=== PATIENT | male | born 1955 | race Caucasian/White ===

== ENCOUNTER 2017-12-14 04:11 | Emergency (ER) | payer BC ==
[~2017-12-14] VITALS: Ht 182.9 cm; Wt 115.0 kg
[2017-12-14 04:14] VITALS: BP 178/96; PULSE 70; RESP 18; TEMP 97.6; O2SAT 96
[2017-12-14] MEDS ORDERED: ASPI-516 CHEW (04:28)
[2017-12-14] MEDS ORDERED: SODIUM CHLOR 0.9% 1000 ML INJ 1,000 ML IV ONE (04:28)
[2017-12-14] MEDS ORDERED: LIPI20TA PO (04:28)
[2017-12-14] MEDS ORDERED: ONDANSETRON HCL 4 MG/2 ML VIAL ONE (04:28)
--- NOTE | 2017-12-14 04:28 | PD ---
HPI Chief Complaint: Dizziness Time Seen by Provider: 04:26 Travel History International Travel<30 days: No Contact w/Intl Traveler<30days: No Traveled to known affect area: No History of Present Illness HPI 62 yo male complains of dizziness. Started about 3 hours prior to arrival at rest. Sensation as room spinning around. Systems include vomiting. No chest pain. Diaphoresis present. Severity moderate to severe. No similar prior episode. PFSH Past Medical History Immunizations Current: Yes Triglycerides - High: Yes Tetanus Vaccination: Unknown Influenza Vaccination: No Social History Alcohol Use: Yes (occ) Tobacco Use: No Substance Use: No Allergies-Medications (Allergen,Severity, Reaction): Coded Allergies: No Known Allergies (Unverified , 12/14/17) Reported Meds & Prescriptions Reported Meds & Active Scripts Active Ofloxacin Otic Drops 0.3 % Drops 5 Drop RIGHT EAR DAILY 7 Days Reported Aspirin 81 Mg Chew 81 Mg CHEW DAILY Lipitor (Atorvastatin Calcium) 20 Mg Tab 20 Mg PO HS Review of Systems Except as stated in HPI: all other systems reviewed are Neg General / Constitutional: No: Fever Physical Exam Narrative GENERAL: 62 yo M, WNWD, moderate distress 2/2 dizziness Vital Signs Date Time Temp Pulse Resp B/P (MAP) Pulse Ox O2 Delivery O2 Flow Rate FiO2 12/14/17 04:30 85 20 178/107 (130) 96 Room Air 12/14/17 04:29 18 97 Room Air 12/14/17 04:14 97.6 70 18 178/96 (123) 96 SKIN: Warm and dry. HEAD: Atraumatic. Normocephalic. EYES: Pupils equal and round. No scleral icterus. No injection or drainage. Minimal Leftward horizontal nystagmus. ENT: No nasal bleeding or discharge. Mucous membranes pink and moist. R external canal with minimal otitis. L external canal normal. NECK: Trachea midline. No JVD. CARDIOVASCULAR: Regular rate and rhythm. RESPIRATORY: No accessory muscle use. Clear to auscultation. Breath sounds equal bilaterally. GASTROINTESTINAL: Abdomen soft, non-tender, nondistended. Hepatic and splenic margins not palpable. MUSCULOSKELETAL: Extremities without clubbing, cyanosis, or edema. No obvious deformities. NEUROLOGICAL: Awake and alert. No obvious cranial nerve deficits. Motor grossly within normal limits. Five out of 5 muscle strength in the arms and legs. Normal speech. PSYCHIATRIC: Appropriate mood and affect; insight and judgment normal. Data Data Last Documented VS Vital Signs Date Time Temp Pulse Resp B/P (MAP) Pulse Ox O2 Delivery O2 Flow Rate FiO2 12/14/17 04:30 85 20 178/107 (130) 96 Room Air 12/14/17 04:14 97.6 Orders Orders Electrocardiogram (12/14/17 04:28) Basic Metabolic Panel (Bmp) (12/14/17 04:28) Complete Blood Count With Diff (12/14/17 04:28) Ecg Monitoring (12/14/17 04:28) Iv Access Insert/Monitor (12/14/17 04:28) Oximetry (12/14/17 04:28) Meclizine (Antivert) (12/14/17 04:30) Ondansetron Inj (Zofran Inj) (12/14/17 04:30) Sodium Chloride 0.9% Flush (Ns Flush) (12/14/17 04:30) Sodium Chlor 0.9% 1000 Ml Inj (Ns 1000 M (12/14/17 04:28) Lorazepam Inj (Ativan Inj) (12/14/17 04:30) Ondansetron Inj (Zofran Inj) (12/14/17 04:28) Ct Brain W/O Iv Contrast(Rout) (12/14/17 04:37) Ed Discharge Order (12/14/17 06:03) Labs Laboratory Tests Test 12/14/17 04:35 White Blood Count 9.7 TH/MM3 Red Blood Count 4.95 MIL/MM3 Hemoglobin 15.7 GM/DL Hematocrit 44.4 % Mean Corpuscular Volume 89.8 FL Mean Corpuscular Hemoglobin 31.7 PG Mean Corpuscular Hemoglobin Concent 35.3 % Red Cell Distribution Width 13.3 % Platelet Count 216 TH/MM3 Mean Platelet Volume 8.5 FL Neutrophils (%) (Auto) 62.1 % Lymphocytes (%) (Auto) 26.9 % Monocytes (%) (Auto) 6.3 % Eosinophils (%) (Auto) 3.9 % Basophils (%) (Auto) 0.8 % Neutrophils # (Auto) 6.0 TH/MM3 Lymphocytes # (Auto) 2.6 TH/MM3 Monocytes # (Auto) 0.6 TH/MM3 Eosinophils # (Auto) 0.4 TH/MM3 Basophils # (Auto) 0.1 TH/MM3 CBC Comment DIFF FINAL Differential Comment Blood Urea Nitrogen 12 MG/DL Creatinine 0.93 MG/DL Random Glucose 156 MG/DL Calcium Level 8.4 MG/DL Sodium Level 138 MEQ/L Potassium Level 3.5 MEQ/L Chloride Level 105 MEQ/L Carbon Dioxide Level 24.0 MEQ/L Anion Gap 9 MEQ/L Estimat Glomerular Filtration Rate 82 ML/MIN MDM Medical Decision Making Medical Screen Exam Complete: Yes Emergency Medical Condition: Yes Medical Record Reviewed: Yes Differential Diagnosis otitis externa, vertigo peripheral, vertigo central Narrative Course CBC & BMP Diagram 12/14/17 04:35 Calcium Level 8.4 L Tn < 0.02 EKG: sinus, rate 68, normal, normal, no ischemia Last Impressions Head CT 12/14/17 3967 Signed Impressions: Service Date/Time: Sunday, December 14, 2017 05:02 - CONCLUSION: Negative noncontrast head CT. Wilner Shelby MD The patient is resting comfortably and feels better, is alert and in no distress. The patients results and examination findings were discussed. The repeat examination is unremarkable and benign. The history, exam, diagnostic testing, and current condition do not suggest any significant pathology to warrant further testing, continued ED treatment, admission, or surgical evaluation at this point. The vital signs have been stable. The patient does not have uncontrollable pain, intractable vomiting, or other significant symptoms. The patient's condition is stable and appropriate for discharge. The patient will pursue further outpatient evaluation with a primary care physician or other designated or consulting physician as indicated in the discharge instructions. The patient expressed understanding and was agreeable with this plan. Diagnosis Primary Impression: Vertigo Additional Impression: Otitis externa Qualified Codes: H60.501 - Unspecified acute noninfective otitis externa, right ear Referrals: Primary Care Physician 2 days Med/Other Pt SpecificInfo: Prescription(s) given Scripts Meclizine (Meclizine) 25 Mg Tab 25 MG PO TID Y for VERTIGO, #30 TAB 0 Refills Prov: Orville Lucas MD 12/14/17 Ofloxacin Otic Drops (Ofloxacin Otic Drops) 0.3 % Drops 5 DROP RIGHT EAR DAILY for Infection for 7 Days, #1 BOTTLE 0 Refills Prov: Orville Lucas MD 12/14/17 Disposition: 01 DISCHARGE HOME Condition: Stable Orville Lucas MD Dec 14, 2017 04:28
[2017-12-14 04:29] VITALS: RESP 18; O2SAT 97
[2017-12-14 04:30] VITALS: BP 178/107; PULSE 85; RESP 20; O2SAT 96
[2017-12-14] MEDS ORDERED: LORazepam 2 MG/ML VIAL IV PUSH ONE (04:30)
[2017-12-14] MEDS ORDERED: ONDANSETRON HCL 4 MG/2 ML VIAL IVP ONE (04:30)
[2017-12-14] MEDS ORDERED: MECLIZINE HCL 25 MG TAB PO ONE (04:30)
[2017-12-14] MEDS ORDERED: SODIUM CHLORIDE 0.9% FLUSH 10 ML FLUSH IVF PRN (04:30)
[2017-12-14 04:51] LABS: BASOPHIL # 0.1 TH/MM3 (0-0.2); BASOPHIL % 0.8 % (0.0-2.0); EOSINOPHIL # 0.4 TH/MM3 (0-0.4); EOSINOPHIL % 3.9 % (0.0-4.0); HEMATOCRIT 44.4 % (39.0-51.0); HEMOGLOBIN 15.7 GM/DL (13.0-17.0); LYMPH % 26.9 % (9.0-44.0); LYMPHOCYTE # 2.6 TH/MM3 (1.0-4.8); MEAN CELL VOLUME 89.8 FL (80.0-100.0); MEAN CORPUSCULAR HEMOGLOBIN 31.7 PG (27.0-34.0); MEAN CORPUSCULAR HGB CONC 35.3 % (32.0-36.0); MEAN PLATELET VOLUME 8.5 FL (7.0-11.0); MONO % 6.3 % (0.0-8.0); MONOCYTE # 0.6 TH/MM3 (0-0.9); NEUT % 62.1 % (16.0-70.0); PLATELET COUNT 216 TH/MM3 (150-450); RED BLOOD COUNT 4.95 MIL/MM3 (4.50-5.90); RED CELL DISTRIBUTION WIDTH 13.3 % (11.6-17.2); WHITE BLOOD COUNT 9.7 TH/MM3 (4.0-11.0)
--- NOTE | 2017-12-14 05:16 | RADRPT ---
EXAM DATE/TIME: 12/14/2017 05:02 [facility] COMPARISON: No previous studies available for comparison. INDICATIONS : Dizziness. RADIATION DOSE: 56.35 CTDIvol (mGy) MEDICAL HISTORY : None SURGICAL HISTORY : None. ENCOUNTER: Initial ACUITY: 1 day PAIN SCALE: 0/10 LOCATION: cranial TECHNIQUE: Multiple contiguous axial images were obtained of the head. Using automated exposure control and adj ustment of the mA and/or kV according to patient size, radiation dose was kept as low as reasonably a chievable to obtain optimal diagnostic quality images. DICOM format image data is available electro nically for review and comparison. FINDINGS: CEREBRUM: The ventricles are normal for age. No evidence of midline shift, mass lesion, hemorrhage or acute in farction. No extra-axial fluid collections are seen. POSTERIOR FOSSA: The cerebellum and brainstem are intact. The 4th ventricle is midline. The cerebellopontine angle i s unremarkable. EXTRACRANIAL: The visualized portion of the orbits is intact. SKULL: The calvaria is intact. No evidence of skull fracture. CONCLUSION: Negative noncontrast head CT. Wilner Shelby MD on December 14, 2017 at 5:15 Board Certified Radiologist. This report was verified electronically.
[2017-12-14] MEDS ORDERED: OFLO0.3D9 RIGHT EAR (05:20)
[2017-12-14 05:23] LABS: CALCIUM 8.4 MG/DL (8.5-10.1); CREATININE 0.93 MG/DL (0.60-1.30)
[2017-12-14] MEDS ORDERED: MECL-62 PO (06:03)
--- NOTE | 2017-12-14 13:52 | EKG ---
Date Performed: 12/14/2017 Time Performed: 04:33:46 PTAGE: 62 years EKG: Sinus rhythm POSSIBLE RIGHT VENTRICULAR CONDUCTION DELAY MODERATE T-WAVE ABNORMALITY, CONSIDER ANTERIOR ISCHEMIA ABNORMAL ECG NO PREVIOUS TRACING 12/13/2017 [id number] DOCTOR: Razia Richardson Interpretating Date/Time 12/14/2017 13:50:37
== END 2017-12-14 06:15 | disposition home or self-care (01) ==
LOC: NEPE 04:11
DX: R42 Dizziness and giddiness (principal); H60.91 Unspecified otitis externa, right ear; R94.31 Abnormal electrocardiogram [ECG] [EKG]
CPT/HCPCS: 70450; 80048; 85025; 93005; 96361; 96374; 96375; 99285; J2060; J2405; J7030